=== PATIENT | female | born 1950 | race Caucasian/White ===

== ENCOUNTER 2017-05-23 20:09 | Inpatient (IN) | payer OTHER ==
[~2017-05-23] VITALS: Ht 177.8 cm; Wt 80.7 kg
[2017-05-23 20:30] VITALS: BP 144/72
[2017-05-23] MEDS ORDERED: ATOR20TA PO (21:17)
[2017-05-23] MEDS ORDERED: LISI40TA4 PO (21:17)
[2017-05-23] MEDS ORDERED: LEVO112T7 PO (21:17)
[2017-05-23] MEDS ORDERED: GABA-534 PO (21:17)
[2017-05-23] MEDS ORDERED: INSU100V3 SQ (21:17)
[2017-05-23] MEDS ORDERED: MAG HYDROX/AL HYDROX/SIMETH 30 ML UDC PO PRN (21:30)
[2017-05-23] MEDS ORDERED: MAGNESIUM HYDROXIDE 30 ML UDC PO PRN (21:30)
[2017-05-23] MEDS ORDERED: DEXTROSE 50%-WATER 50 ML DISP.SYRIN IV PRN (22:00)
[2017-05-23] MEDS: ATORVASTATIN 40 MG TABLET PO SCH (22:21)
[2017-05-23] MEDS: BLOOD SUGAR DIAGNOSTIC 1 EACH STRIP IN SCH (22:27)
[2017-05-23] MEDS: INSULIN REGULAR, HUMAN 100 UNIT/ML 3 ML VIAL SQ PRN (22:43)
[2017-05-23] MEDS: TEMAZEPAM 7.5 MG CAPSULE PO PRN (22:49)
[2017-05-23] MEDS: LORAZEPAM 0.5 MG TABLET PO PRN (23:12)
[2017-05-24] MEDS: ACETAMINOPHEN 325 MG TABLET PO PRN (05:29)
[2017-05-24] MEDS: BLOOD SUGAR DIAGNOSTIC 1 EACH STRIP IN SCH ×6 (07:05→22:02)
[2017-05-24 07:20] LABS: ALBUMIN 3.6 g/dL (3.4-5.0); BILIRUBIN,TOTAL 0.5 mg/dL (0.2-1.0); CALCIUM, SERUM 8.9 mg/dL (8.5-10.1); MAGNESIUM 1.8 mg/dL (1.8-2.4); PHOSPHORUS 3.4 mg/dL (2.5-4.9); POTASSIUM 4.1 mmol/L (3.5-5.1)
[2017-05-24] MEDS ORDERED: LEVOTHYROXINE SODIUM 112 MCG TABLET PO SCH (07:30)
[2017-05-24] MEDS: INSULIN REGULAR, HUMAN 100 UNIT/ML 3 ML VIAL SQ PRN ×4 (07:46→22:01)
[2017-05-24 07:58] VITALS: BP 170/93
[2017-05-24] MEDS ORDERED: GABA-532 PO (08:06)
[2017-05-24] MEDS ORDERED: OMEP20CA10 PO (08:06)
[2017-05-24] MEDS ORDERED: BLOO-668 IN (08:06)
[2017-05-24] MEDS ORDERED: MIRT30TA7 PO (08:06)
[2017-05-24] MEDS ORDERED: LAMO100T PO (08:06)
[2017-05-24] MEDS ORDERED: CHLO100T2 PO (08:06)
[2017-05-24] MEDS ORDERED: DIVA500T54 PO (08:06)
[2017-05-24] MEDS ORDERED: ALPR2TAB7 PO (08:06)
[2017-05-24] MEDS ORDERED: ALBU8.5H8 IH (08:07)
[2017-05-24] MEDS ORDERED: NPH,100V SQ (08:08)
[2017-05-24] MEDS: LORAZEPAM 0.5 MG TABLET PO PRN (08:16)
[2017-05-24] MEDS: GABAPENTIN 300 MG CAPSULE PO SCH ×3 (08:16→17:11)
[2017-05-24] MEDS ORDERED: LISINOPRIL (20MG) 20 MG TABLET PO SCH (09:00)
[2017-05-24] MEDS: DIVALPROEX SODIUM 500 MG TABLET.DR PO SCH ×2 (10:15→17:11)
[2017-05-24] MEDS: OLANZAPINE 5 MG/TAB.RAPDIS PO SCH (10:15)
[2017-05-24] MEDS ORDERED: INSULIN REGULAR, HUMAN 100 UNIT/ML 10 ML VIAL SQ ONE (12:00)
[2017-05-24] MEDS ORDERED: ALBUTEROL SULFATE 8 GM HFA.AER.AD IH PRN (13:30)
[2017-05-24] MEDS ORDERED: ALBUTEROL FS 2.5 MG/3 ML VIAL.NEB NEB PRN (14:00)
[2017-05-24 16:00] VITALS: BP 100/58
[2017-05-24] MEDS ORDERED: GABAPENTIN 100 MG CAPSULE PO SCH (17:00)
[2017-05-24] MEDS: INSULIN LISPRO/ASPART 100 UNIT/ML CARTRIDGE SQ SCH (18:51)
[2017-05-24 20:00] VITALS: BP 104/94
[2017-05-24] MEDS: ATORVASTATIN 40 MG TABLET PO SCH (21:57)
[2017-05-24] MEDS: TEMAZEPAM 7.5 MG CAPSULE PO PRN (21:57)
[2017-05-24] MEDS: INSULIN GLARGINE, 100 UNIT/ML CARTRIDGE SQ SCH (22:00)
[2017-05-24] MEDS ORDERED: MIRTAZAPINE 15 MG TABLET PO SCH (22:00)
[2017-05-24] MEDS ORDERED: ATORVASTATIN 10 MG TABLET PO SCH (22:00)
[2017-05-25 08:00] VITALS: BP 150/81
[2017-05-25] MEDS: BLOOD SUGAR DIAGNOSTIC 1 EACH STRIP IN SCH ×8 (08:00→21:57)
[2017-05-25] MEDS: OLANZAPINE 5 MG/TAB.RAPDIS PO SCH (08:16)
[2017-05-25] MEDS: GABAPENTIN 300 MG CAPSULE PO SCH ×3 (08:17→16:36)
[2017-05-25] MEDS: LEVOTHYROXINE SODIUM 112 MCG TABLET PO SCH (08:17)
[2017-05-25] MEDS: LISINOPRIL (20MG) 20 MG TABLET PO SCH (08:17)
[2017-05-25] MEDS: DIVALPROEX SODIUM 500 MG TABLET.DR PO SCH ×2 (08:17→16:35)
[2017-05-25] MEDS: INSULIN LISPRO/ASPART 100 UNIT/ML CARTRIDGE SQ SCH ×3 (08:19→17:01)
[2017-05-25] MEDS: INSULIN REGULAR, HUMAN 100 UNIT/ML 3 ML VIAL SQ PRN ×4 (08:20→21:56)
[2017-05-25 16:00] VITALS: BP 139/86
[2017-05-25] MEDS: OLANZAPINE 5 MG TABLET PO SCH (16:35)
[2017-05-25 20:00] VITALS: BP 143/76
[2017-05-25] MEDS: ATORVASTATIN 40 MG TABLET PO SCH (21:47)
[2017-05-25] MEDS: TEMAZEPAM 7.5 MG CAPSULE PO PRN (21:48)
[2017-05-25] MEDS: INSULIN GLARGINE, 100 UNIT/ML CARTRIDGE SQ SCH (21:55)
[2017-05-26] MEDS: BLOOD SUGAR DIAGNOSTIC 1 EACH STRIP IN SCH ×8 (07:38→22:06)
[2017-05-26] MEDS: INSULIN LISPRO/ASPART 100 UNIT/ML CARTRIDGE SQ SCH ×3 (07:51→17:26)
[2017-05-26] MEDS: INSULIN REGULAR, HUMAN 100 UNIT/ML 3 ML VIAL SQ PRN ×4 (07:52→22:08)
[2017-05-26] MEDS: LEVOTHYROXINE SODIUM 112 MCG TABLET PO SCH (08:26)
[2017-05-26] MEDS: DIVALPROEX SODIUM 500 MG TABLET.DR PO SCH ×3 (08:26→16:57)
[2017-05-26] MEDS: GABAPENTIN 300 MG CAPSULE PO SCH ×3 (08:26→16:57)
[2017-05-26] MEDS: LISINOPRIL (20MG) 20 MG TABLET PO SCH (08:27)
[2017-05-26 08:29] VITALS: BP 133/80
[2017-05-26] MEDS: OLANZAPINE 5 MG/TAB.RAPDIS PO SCH (12:26)
[2017-05-26] MEDS ORDERED: OLANZAPINE 5 MG/TAB.RAPDIS PO SCH (13:00)
[2017-05-26 16:00] VITALS: BP 137/74
[2017-05-26] MEDS: OLANZAPINE 5 MG TABLET PO SCH (16:57)
[2017-05-26 20:00] VITALS: BP 131/91
[2017-05-26] MEDS: LORAZEPAM 0.5 MG TABLET PO PRN (20:13)
[2017-05-26] MEDS: ATORVASTATIN 40 MG TABLET PO SCH (22:03)
[2017-05-26] MEDS: TEMAZEPAM 7.5 MG CAPSULE PO PRN (22:03)
[2017-05-26] MEDS: INSULIN GLARGINE, 100 UNIT/ML CARTRIDGE SQ SCH (22:08)
[2017-05-26] MEDS ORDERED: LORAZEPAM INJ 2 MG/ML VIAL IM ONE (23:00)
[2017-05-26] MEDS ORDERED: BENZTROPINE MESYLATE (2MG/2ML) 2 MG/2 ML AMPUL IM ONE (23:00)
[2017-05-26] MEDS ORDERED: HALOPERIDOL LACTATE INJ 5 MG/ML VIAL IM ONE (23:00)
[2017-05-26] MEDS ORDERED: HALOPERIDOL LACTATE 10 MG/5 ML UDC ONE (23:09)
[2017-05-27] MEDS: GABAPENTIN 300 MG CAPSULE PO SCH ×4 (08:35→18:05)
[2017-05-27] MEDS: LEVOTHYROXINE SODIUM 112 MCG TABLET PO SCH (08:35)
[2017-05-27] MEDS: DIVALPROEX SODIUM 500 MG TABLET.DR PO SCH ×4 (08:35→18:05)
[2017-05-27] MEDS: OLANZAPINE 5 MG/TAB.RAPDIS PO SCH ×2 (08:35→12:44)
[2017-05-27] MEDS: BLOOD SUGAR DIAGNOSTIC 1 EACH STRIP IN SCH ×5 (08:36→21:26)
[2017-05-27] MEDS: LISINOPRIL (20MG) 20 MG TABLET PO SCH (08:37)
[2017-05-27] MEDS: LORAZEPAM 0.5 MG TABLET PO PRN (08:37)
[2017-05-27 09:00] VITALS: BP 159/90
[2017-05-27] MEDS: ACETAMINOPHEN 325 MG TABLET PO PRN (09:04)
[2017-05-27] MEDS: NEOMY SULF/BACITRAC ZN/POLY 15 GM TUBE TP SCH (09:04)
[2017-05-27] MEDS: INSULIN LISPRO/ASPART 100 UNIT/ML CARTRIDGE SQ SCH ×3 (09:04→18:08)
[2017-05-27] MEDS: INSULIN REGULAR, HUMAN 100 UNIT/ML 3 ML VIAL SQ PRN ×3 (09:06→18:09)
[2017-05-27 12:36] LABS: BASOPHILS % (AUTO) 0.4 % (0.0-2.0); EOSINOPHILS # (AUTO) 0.1 /CMM (0.0-0.7); EOSINOPHILS % (AUTO) 1.7 % (0.0-6.0); HEMATOCRIT 38 % (33-45); HEMOGLOBIN 13.4 g/dL (11.5-14.8); LYMPHOCYTES # (AUTO) 1.6 /CMM (0.8-4.8); LYMPHOCYTES % (AUTO) 27.4 % (20.0-44.0); MEAN CORPUSCULAR HEMOGLOBIN 33 PG (26.0-33.0); MEAN CORPUSCULAR HGB CONC 35 g/dl (31.0-36.0); MEAN CORPUSCULAR VOLUME 94 fL (82-100); MONOCYTES # (AUTO) 0.2 /CMM (0.1-1.30); MONOCYTES % (AUTO) 2.8 % (2.0-12.0); NEUTROPHILS # (AUTO) 3.9 /CMM (1.8-8.9); NEUTROPHILS % (AUTO) 67.7 % (43.0-81.0); PLATELET COUNT (AUTO) 177 /CMM (150-450); RDW COEFFICIENT OF VARIATION 13.4 (11.5-15.0); RED BLOOD CELL COUNT(AUTO) 4.05 MIL/uL (4.0-5.2); WHITE BLOOD COUNT (AUTO) 5.7 K/uL (4.3-11.0)
[2017-05-27 12:55] LABS: CALCIUM, SERUM 9.1 mg/dL (8.5-10.1); CREATININE 0.9 mg/dL (0.6-1.3); MAGNESIUM 1.9 mg/dL (1.8-2.4); PHOSPHORUS 3.9 mg/dL (2.5-4.9); POTASSIUM 4.3 mmol/L (3.5-5.1)
[2017-05-27 15:44] VITALS: BP 116/58
[2017-05-27 15:45] VITALS: BP 100/59
[2017-05-27] MEDS: OLANZAPINE 5 MG TABLET PO SCH ×2 (17:00→18:06)
[2017-05-27 20:23] VITALS: BP 144/72
[2017-05-27] MEDS: INSULIN GLARGINE, 100 UNIT/ML CARTRIDGE SQ SCH (21:26)
[2017-05-27] MEDS: ATORVASTATIN 40 MG TABLET PO SCH (21:26)
[2017-05-28 08:00] VITALS: BP_SYST 147; BP_SYST 148; BP_DIAS 85
[2017-05-28] MEDS: GABAPENTIN 300 MG CAPSULE PO SCH ×3 (08:26→17:06)
[2017-05-28] MEDS: LEVOTHYROXINE SODIUM 112 MCG TABLET PO SCH (08:26)
[2017-05-28] MEDS: LISINOPRIL (20MG) 20 MG TABLET PO SCH (08:26)
[2017-05-28] MEDS: DIVALPROEX SODIUM 500 MG TABLET.DR PO SCH ×3 (08:26→17:06)
[2017-05-28] MEDS: OLANZAPINE 5 MG/TAB.RAPDIS PO SCH ×2 (08:26→12:11)
[2017-05-28] MEDS: NEOMY SULF/BACITRAC ZN/POLY 15 GM TUBE TP SCH (08:27)
[2017-05-28] MEDS: BLOOD SUGAR DIAGNOSTIC 1 EACH STRIP IN SCH ×4 (08:30→22:00)
[2017-05-28] MEDS: INSULIN LISPRO/ASPART 100 UNIT/ML CARTRIDGE SQ SCH ×3 (08:33→17:31)
[2017-05-28] MEDS: INSULIN REGULAR, HUMAN 100 UNIT/ML 3 ML VIAL SQ PRN ×3 (08:35→17:31)
[2017-05-28 16:00] VITALS: BP 150/75
[2017-05-28] MEDS: OLANZAPINE 5 MG TABLET PO SCH (17:06)
[2017-05-28] MEDS: LORAZEPAM 0.5 MG TABLET PO PRN (20:03)
[2017-05-28 20:14] VITALS: BP 130/52
[2017-05-28] MEDS: ATORVASTATIN 40 MG TABLET PO SCH (21:47)
[2017-05-28] MEDS: TEMAZEPAM 7.5 MG CAPSULE PO PRN (21:47)
[2017-05-28] MEDS: INSULIN GLARGINE, 100 UNIT/ML CARTRIDGE SQ SCH (22:00)
[2017-05-29 08:00] VITALS: BP 118/58
[2017-05-29] MEDS: GABAPENTIN 300 MG CAPSULE PO SCH ×3 (08:10→17:10)
[2017-05-29] MEDS: LEVOTHYROXINE SODIUM 112 MCG TABLET PO SCH (08:10)
[2017-05-29] MEDS: DIVALPROEX SODIUM 500 MG TABLET.DR PO SCH ×3 (08:10→17:10)
[2017-05-29] MEDS: LISINOPRIL (20MG) 20 MG TABLET PO SCH (08:11)
[2017-05-29] MEDS: OLANZAPINE 5 MG/TAB.RAPDIS PO SCH ×2 (08:11→13:49)
[2017-05-29] MEDS: NEOMY SULF/BACITRAC ZN/POLY 15 GM TUBE TP SCH (08:15)
[2017-05-29] MEDS: INSULIN LISPRO/ASPART 100 UNIT/ML CARTRIDGE SQ SCH ×3 (08:22→17:30)
[2017-05-29] MEDS: INSULIN REGULAR, HUMAN 100 UNIT/ML 3 ML VIAL SQ PRN ×2 (08:23→12:19)
[2017-05-29] MEDS: BLOOD SUGAR DIAGNOSTIC 1 EACH STRIP IN SCH ×3 (08:26→17:30)
[2017-05-29] MEDS ORDERED: DOCUSATE SODIUM 100 MG CAPSULE PO SCH (09:00)
[2017-05-29 16:06] VITALS: BP 150/88
[2017-05-29] MEDS: OLANZAPINE 5 MG TABLET PO SCH (17:00)
[2017-05-29] MEDS ORDERED: INSULIN GLARGINE, 100 UNIT/ML CARTRIDGE SQ SCH (22:00)
== END 2017-05-29 17:30 | disposition home or self-care (01) | DRG 885 ==
LOC: GPS 20:09
PROVIDERS: ADMIT Psychiatry & Neurology Psychiatry; ATTEND Psychiatry & Neurology Psychiatry
DX: F31.10 Bipolar disorder, current episode manic without psychotic features, unspecified (principal); E11.65 Type 2 diabetes mellitus with hyperglycemia; G40.909 Epilepsy, unspecified, not intractable, without status epilepticus; F29 Unspecified psychosis not due to a substance or known physiological condition; E78.5 Hyperlipidemia, unspecified; Z73.6 Limitation of activities due to disability; Z79.899 Other long term (current) drug therapy; I10 Essential (primary) hypertension; E03.9 Hypothyroidism, unspecified
CPT/HCPCS: 36415; 80048-TC; 80053-TC; 80061-TC; 80164-TC; 82962-TC; 83735-TC; 84100-TC; 85025-TC; 87081-TC; J0515; J1630; J1815; J2060